=== PATIENT | female | born 1960 | race Caucasian/White ===

== ENCOUNTER 2017-04-24 10:25 | Emergency (ER) | payer OTHER ==
[~2017-04-24] VITALS: Ht 175.3 cm; Wt 74.8 kg
[2017-04-24 10:30] VITALS: BP 128/78
[2017-04-24] MEDS ORDERED: NICO-687 TOP (12:43)
[2017-04-24] MEDS ORDERED: CHLO25CA10 PO ×2 (12:43→12:54)
== END 2017-04-24 13:00 | disposition home or self-care (01) ==
LOC: ER 10:25
DX: Z02.89 Encounter for other administrative examinations (principal); F10.239 Alcohol dependence with withdrawal, unspecified; I10 Essential (primary) hypertension; F17.200 Nicotine dependence, unspecified, uncomplicated; Z88.5 Allergy status to narcotic agent; Z79.899 Other long term (current) drug therapy; Y90.9 Presence of alcohol in blood, level not specified
CPT/HCPCS: 99283

== ENCOUNTER 2020-06-15 11:30 | Emergency (ER) | payer OTHER ==
[~2020-06-15] VITALS: Ht 175.3 cm; Wt 70.2 kg
[~2020-06-15 11:30] MED LIST: CHLO25CA10 PO
[2020-06-15 11:47] VITALS: BP 145/78
--- NOTE | 2020-06-15 12:17 | NUR ---
ICE PACK TO LEFT SHOULDER
[2020-06-15] MEDS ORDERED: HYDR-3965 PO (12:33)
[2020-06-15] MEDS ORDERED: HYDROcodone/acetaminophen 10/325mg tab PO ONE (12:35)
== END 2020-06-15 13:00 | disposition home or self-care (01) ==
LOC: ER 11:31
DX: S42.032A Displaced fracture of lateral end of left clavicle, initial encounter for closed fracture (principal); S50.312A Abrasion of left elbow, initial encounter; S40.212A Abrasion of left shoulder, initial encounter; M25.561 Pain in right knee; M25.512 Pain in left shoulder; I10 Essential (primary) hypertension; M19.90 Unspecified osteoarthritis, unspecified site; Z72.89 Other problems related to lifestyle; Z88.5 Allergy status to narcotic agent; Z79.899 Other long term (current) drug therapy; W01.0XXA Fall on same level from slipping, tripping and stumbling without subsequent striking against object, initial encounter; Y93.89 Activity, other specified; Y92.89 Other specified places as the place of occurrence of the external cause; Y99.8 Other external cause status
CPT/HCPCS: 29105; 73030; 73564; 99284